=== PATIENT | female | born 1935 | race Hispanic/Latino ===

== ENCOUNTER 2016-12-09 13:10 | Emergency (ER) | payer MEDICARE ==
[2016-12-09 14:07] VITALS: BP 153/83
--- NOTE | 2016-12-09 14:34 | Emergency Department Report ---
Chief Complaint: Syncope Stated Complaint: NERVOUS Time Seen by Provider: 12/09/16 14:24 - HPI History of Present Illness: 81-year-old female presents today with neck and chronic back pain. Patient states her neck pain has been going on for 2 days. Positive for one syncopal episode this morning. - ROS Review of Systems: per HPI - Exam Vital Signs: Vital Signs 12/09/16 14:01 Temperature 98.1 F Pulse Rate 87 Respiratory 19 Rate Blood Pressure 153/83 O2 Sat by Pulse 98 Oximetry Physical Exam: General: 81-year-old female in no acute distress. Well-developed, well- nourished. CV: Regular rate and rhythm. Lungs: Clear to auscultation bilaterally. Neck: No midline tenderness. Positive for bilateral paraspinal tenderness to palpation. Full range of motion, but painful. MSE screening note: Focused history and physical exam performed. Due to findings the following was ordered: ED Disposition for MSE Condition: Stable
[2016-12-09 15:20] LABS: Basophils % (Auto) 0.3 % (0.0-1.8); Eosinophils % (Auto) 0.2 % (0.0-4.3); Hematocrit 38.9 % (30.3-42.9); Hemoglobin 13.3 gm/dl (10.1-14.3); Mean Corpuscular HGB Conc 34 % (30-34); Mean Corpuscular Hemoglobin 31 pg (28-32); Mean Corpuscular Volume 90 fl (79-97); Platelet Count 330 K/mm3 (140-440); Red Blood Count 4.31 M/mm3 (3.65-5.03); White Blood Count 9.2 K/mm3 (4.5-11.0)
[2016-12-09 15:38] LABS: Creatine Kinase MB 1.5 ng/mL (0.0-4.0)
[2016-12-09 15:40] LABS: BUN/Creatinine Ratio 18.33; Blood Urea Nitrogen 11 mg/dL (7-17); Calcium 9.6 mg/dL (8.4-10.2); Carbon Dioxide 25 mmol/L (22-30); Chloride 93.8 mmol/L (98-107); Creatine Kinase 40 units/L (30-135); Glucose 124 mg/dL (65-100); Potassium 4.4 mmol/L (3.6-5.0); Sodium 133 mmol/L (137-145)
[2016-12-09 15:42] LABS: Anion Gap 19 mmol/L
== END 2016-12-09 20:15 | disposition left against medical advice (07) ==
LOC: ED 13:10
DX: M54.2 Cervicalgia (principal); R55 Syncope and collapse; M54.6 Pain in thoracic spine; G89.29 Other chronic pain; Z53.21 Procedure and treatment not carried out due to patient leaving prior to being seen by health care provider
CPT/HCPCS: 36415; 80048; 82550; 82553; 84484; 85025; 93005; 93010